=== PATIENT | female | born 2000 | race Caucasian/White ===

== ENCOUNTER 2019-10-26 13:21 | Emergency (ER) | payer OTHER ==
[~2019-10-26] VITALS: Ht 160 cm; Wt 72.6 kg
[2019-10-26 14:15] LABS: URINE BILIRUBIN NEGATIVE (Negative); URINE BLOOD NEGATIVE (Negative); URINE CLARITY CLEAR; URINE COLOR YELLOW; URINE GLUCOSE-RANDOM NEGATIVE (Negative); URINE KETONES NEGATIVE (Negative); URINE LEUKOCYTES-REFLEX NEGATIVE (Negative); URINE PROTEIN NEGATIVE (Negative); URINE SPECIFIC GRAVITY 1.025 (1.005-1.030); URINE UROBILINOGEN 0.2 E.U./dl (0.2-1.0)
[2019-10-26 14:17] LABS: URINE NITRITE-REFLEX POSITIVE (Negative)
[2019-10-26 14:25] LABS: BACTERIA-REFLEX >30 Many /HPF (None Seen); CASTS None Seen /LPF (None Seen); CRYSTALS None Seen /LPF (None Seen); MUCUS None Seen strn/LPF (None Seen); SQUAMOUS 4-10 Moderate /LPF (0-3); URINE RBC 0-2 Rare /HPF (0-2); URINE WBC-REFLEX 0-5 Rare /HPF (0-5)
[2019-10-26 14:32] LABS: ABSOLUTE EOSINOPHILS 0.1 thou/uL (0.0-0.7); ABSOLUTE MONOCYTES 0.4 thou/uL (0.0-1.2); ABSOLUTE NEUTROPHILS 3.4 thou/uL (1.6-8.1); BASOPHILS 0.5 %; EOSINOPHILS 1.8 %; HEMATOCRIT 44.8 % (37.0-47.0); HEMOGLOBIN 15.7 gm/dL (12.0-15.0); LYMPHOCYTES 33.7 %; MCH 32.2 pg (26.0-34.0); MCHC 35.2 g/dL (28.0-37.0); MCV 91.6 fL (80.0-100.0); MONOCYTES 7.2 %; MPV 7.7 fl. (7.2-11.1); NUCLEATED RBCS 0 /100WBC; PLATELET COUNT* 254 thou/uL (150-400); POLYS 56.8 %; RBC 4.89 mil/uL (4.20-5.00); RDW-CV 12.2 % (10.5-14.5)
[2019-10-26 14:41] LABS: CALCIUM 8.3 mg/dL (8.5-10.1); CREATININE 0.7 mg/dL (0.6-1.3); POTASSIUM 3.9 mmol/L (3.5-5.1)
[2019-10-26 14:46] LABS: ALBUMIN 3.6 g/dL (3.4-5.0); TOTAL BILIRUBIN 0.5 mg/dL (<0.1-1.0); TOTAL PROTEIN 7.1 g/dL (6.4-8.2)
[2019-10-26] MEDS ORDERED: KEFLEX500 M1 PO (14:54)
[2019-10-26] MEDS ORDERED: ONDANSETRON HCL4 M2 PO (14:54)
[2019-10-26 15:07] VITALS: BP 111/65
--- NOTE | 2019-10-27 16:45 | EKG ---
[place] [address] ELECTROCARDIOGRAM REPORT Name: DAWN THOMSON Room: [facility]#: [id number] Admission: 10/26/19 Attend Phys: Discharge: 10/26/19 Date of : 89 Date of Service: 10/26/19 1350 Report #: [id number] THIS REPORT FOR: //name// [facility] ED Test Date: 2019-10-26 Test Time: 13:50:07 Pat Name: DAWN THOMSON Department: Room: Gender: [employer]: : 2000 Requested By: Yulia Chew Order Number: [id number] : Ollie Alvarez Measurements Intervals [place] Rate: 62 P: 30 AL: 189 QRS: 46 QRSD: 92 T: 55 QT: 400 QTc: 407 Interpretive Statements Sinus rhythm No previous ECG available for comparison Electronically Signed On 10-27-2019 16:44:12 [employer] OFFICER by Ollie Alvarez [email or web address] <ELECTRONICALLY SIGNED> By: Ollie Alvarez MD, [facility] 10/27/19 1644 1350 1350 Ollie Alvarez MD, FACC /EPI
== END 2019-10-26 15:07 | disposition home or self-care (01) ==
LOC: M.ERS 13:21
PROVIDERS: Nurse Practitioner Family
DX: N39.0 Urinary tract infection, site not specified (principal); R11.2 Nausea with vomiting, unspecified; Z87.442 Personal history of urinary calculi